=== PATIENT | male | born 1960 | race African-American/Black ===

== ENCOUNTER 2018-09-13 19:40 | Emergency (ER) | payer MEDICARE, MEDICAID ==
[~2018-09-13 19:40] MED LIST: BISM525O5 PO; DIOVAN; DIPHENHYDRAMINE; FLUO20CA33 PO; HYDR-3927 GT; LORA2TAB2 PO; LOSA50TA20 PO; MAGN800O PO; MET5 PO; MIRT15TA PO; MOTRIN PO; MULT-1146 PO; OLAN15TA3 PO; OLAN5TAB3 PO; QUETIAPINE; RISPERIDONE; TEMA15CA5 PO; [UNRECOGNIZED DRUG - CODE] PO
== END 2018-09-13 23:24 | disposition left against medical advice (07) ==
LOC: ER 21:17
DX: R68.89 Other general symptoms and signs (principal); Z53.21 Procedure and treatment not carried out due to patient leaving prior to being seen by health care provider